=== PATIENT | female | born 1990 | race Caucasian/White ===

== ENCOUNTER 2016-07-04 14:23 | Emergency (ER) | payer MEDICAID ==
[~2016-07-04] VITALS: Ht 170.2 cm; Wt 99.8 kg
[2016-07-04 15:00] VITALS: BP_SYST 143
[2016-07-04 15:24] LABS: BASOPHILS # (AUTO) 0.1 K/uL (0.0-0.2); BASOPHILS % (AUTO) 0.5 % (0.0-2.0); EOSINOPHILS # (AUTO) 0.4 K/uL (0.0-0.4); EOSINOPHILS % (AUTO) 3.5 % (0.0-4.0); HEMATOCRIT 38.9 % (36-48); HEMOGLOBIN 13.4 g/dL (12.0-16.0); LYMPHOCYTES # (AUTO) 2.4 K/uL (1.0-5.5); LYMPHOCYTES % (AUTO) 23.7 % (20.5-51.5); MEAN CORPUSCULAR HEMOGLOBIN 29 pg (27-31); MEAN CORPUSCULAR HGB CONC 34 % (32-36); MEAN CORPUSCULAR VOLUME 85 fL (79.0-98.0); MONOCYTES # (AUTO) 0.7 K/uL (0.0-1.0); MONOCYTES % (AUTO) 7.1 % (1.7-9.3); NEUTROPHILS # (AUTO) 6.4 K/uL (1.8-7.7); NEUTROPHILS % (AUTO) 65.2 % (40.0-70.0); PLATELET COUNT (AUTO) 357 K/uL (130-430); RED CELL DISTRIBUTION WIDTH 12.6 % (9.0-15.0)
[2016-07-04 15:30] LABS: CALCIUM 8.5 mg/dL (8.4-11.0); CREATININE 0.81 mg/dL (0.55-1.30); POTASSIUM 3.2 mmol/L (3.5-5.1)
[2016-07-04 15:50] LABS: ALBUMIN 3.3 g/dL (3.4-4.8); TOTAL BILIRUBIN 0.2 mg/dL (0.0-1.0); TOTAL PROTEIN, SERUM 7.1 g/dL (6.4-8.3)
--- NOTE | 2016-07-04 17:16 | NUR ---
Patient to ER bed 3 to gown for evaluation. Side rails up. Report RECEIVED..
--- NOTE | 2016-07-04 17:20 | NUR ---
Dr Castano at bedside examining patient
--- NOTE | 2016-07-04 17:25 | NUR ---
Pt brouht by self, A&Ox4, pt c/o diarrhea x 8 days after taking antibiotics, skin pink and warm, cap refill <3, VS WNL, abd pain 2/10, pt denies pain or discomfort, VS WNL, denies urinary symptoms or bleeding.
[2016-07-04 18:27] VITALS: BP_SYST 142
--- NOTE | 2016-07-04 18:27 | NUR ---
Patient given written and verbal discharge instructions and verbalizes understanding. ER MD discussed with patient the results and treatment provided. Patient in stable condition. ID arm band removed. Rx Zofran and dicyclomine given. Patient educated on pain management and to follow up with PMD. Pain Scale 0/10 . Opportunity for questions provided and answered.
== END 2016-07-04 18:27 | disposition home or self-care (01) ==
LOC: SED 14:23
DX: R19.7 Diarrhea, unspecified (principal)
CPT/HCPCS: 36415; 80053; 83690-TC; 85025; 96361; 96374; 99284; 99285

== ENCOUNTER 2017-09-01 13:42 | Emergency (ER) | payer MEDICAID ==
[~2017-09-01] VITALS: Ht 170.2 cm; Wt 108.9 kg
[2017-09-01 13:42] VITALS: BP_SYST 142
[2017-09-01] MEDS ORDERED: PRO20 PO (13:58)
[2017-09-01] MEDS ORDERED: ACET500C38 PO (13:58)
[2017-09-01] MEDS ORDERED: LURA40TA PO (13:58)
[2017-09-01] MEDS ORDERED: ACET-2165 PO (13:58)
[2017-09-01] MEDS ORDERED: HYDR-2470 PO (13:58)
[2017-09-01 14:40] LABS: BASOPHILS # (AUTO) 0.1 K/uL (0.0-0.2); BASOPHILS % (AUTO) 0.7 % (0.0-2.0); EOSINOPHILS # (AUTO) 0.2 K/uL (0.0-0.4); EOSINOPHILS % (AUTO) 2.4 % (0.0-4.0); HEMATOCRIT 43.7 % (36-48); HEMOGLOBIN 14.9 g/dL (12.0-16.0); LYMPHOCYTES # (AUTO) 2.1 K/uL (1.0-5.5); LYMPHOCYTES % (AUTO) 22.7 % (20.5-51.5); MEAN CORPUSCULAR HEMOGLOBIN 29 pg (27-31); MEAN CORPUSCULAR HGB CONC 34 % (32-36); MEAN CORPUSCULAR VOLUME 86 fL (79.0-98.0); MONOCYTES # (AUTO) 0.6 K/uL (0.0-1.0); NEUTROPHILS # (AUTO) 6.4 K/uL (1.8-7.7); NEUTROPHILS % (AUTO) 68.2 % (40.0-70.0); PLATELET COUNT (AUTO) 397 K/uL (130-430); RED BLOOD CELL COUNT(AUTO) 5.07 MIL/uL (4.2-6.2); RED CELL DISTRIBUTION WIDTH 12.9 % (9.0-15.0); WHITE BLOOD COUNT (AUTO) 9.4 K/uL (4.8-10.8)
[2017-09-01 14:47] LABS: ALBUMIN 3.5 g/dL (3.4-4.8); CALCIUM 9.3 mg/dL (8.4-11.0); CREATININE 1.02 mg/dL (0.55-1.30); POTASSIUM 3.5 mmol/L (3.5-5.1); TOTAL BILIRUBIN 0.3 mg/dL (0.0-1.0)
[2017-09-01] MEDS ORDERED: KETOROLAC TROMETHAMINE 30 MG VIAL IVP ONE (15:00)
[2017-09-01 15:03] LABS: BILIRUBIN,URINE NEGATIVE (NEGATIVE); BLOOD, URINE NEGATIVE (NEGATIVE); CLARITY/URINE HAZY (CLEAR); COLOR,URINE YELLOW (YELLOW); GLUCOSE,URINE NEGATIVE (NEGATIVE); KETONES,URINE NEGATIVE (NEGATIVE); LEUKOCYTE ESTERASE ,URINE NEGATIVE (NEGATIVE); NITRITE, URINE NEGATIVE (NEGATIVE); PROTEIN URINE NEGATIVE (NEGATIVE); UROBILINOGEN,URINE 0.2 (0.2-1.0)
[2017-09-01 16:00] VITALS: BP_SYST 118
== END 2017-09-01 16:00 | disposition home or self-care (01) ==
LOC: SED 13:42
DX: R51 Headache (principal); F41.9 Anxiety disorder, unspecified; R03.0 Elevated blood-pressure reading, without diagnosis of hypertension; F15.10 Other stimulant abuse, uncomplicated; Z90.49 Acquired absence of other specified parts of digestive tract; Z79.899 Other long term (current) drug therapy
CPT/HCPCS: 36415; 70450; 80053; 81003; 81025; 85025; 96374; 99285; J1885

== ENCOUNTER 2018-01-23 15:07 | Emergency (ER) | payer MEDICAID ==
[~2018-01-23] VITALS: Ht 170.2 cm; Wt 104.3 kg
[~2018-01-23 15:07] MED LIST: ACET-2165 PO; ACET500C38 PO; HYDR-2470 PO; LURA40TA PO; PRO20 PO
[2018-01-23 15:10] VITALS: BP_SYST 124
--- NOTE | 2018-01-23 15:10 | NUR ---
BROUGHT BACK TO BED #3 AND TRIAGD. REPORT GIVEN TO KRIS
--- NOTE | 2018-01-23 15:12 | NUR ---
Pt brought by self accompanied by son, pt A&Ox4, c/o R lower abdominal pain and nausea, denies vomiting, LBM today, skin pink and warm, cap refill <3, denies vaginal bleeding.
--- NOTE | 2018-01-23 15:15 | NUR ---
Dr Zimmerman at bedside examining patient
[2018-01-23] MEDS ORDERED: KETOROLAC TROMETHAMINE 30 MG VIAL IVP ONE (15:30)
[2018-01-23 15:54] LABS: BASOPHILS # (AUTO) 0.1 K/uL (0.0-0.2); BASOPHILS % (AUTO) 1.2 % (0.0-2.0); EOSINOPHILS # (AUTO) 0.3 K/uL (0.0-0.4); EOSINOPHILS % (AUTO) 2.7 % (0.0-4.0); HEMATOCRIT 44.2 % (36-48); HEMOGLOBIN 14.4 g/dL (12.0-16.0); LYMPHOCYTES # (AUTO) 2.6 K/uL (1.0-5.5); MEAN CORPUSCULAR HEMOGLOBIN 29 pg (27-31); MEAN CORPUSCULAR HGB CONC 33 % (32-36); MEAN CORPUSCULAR VOLUME 89 fL (79.0-98.0); MONOCYTES # (AUTO) 0.5 K/uL (0.0-1.0); MONOCYTES % (AUTO) 5.5 % (1.7-9.3); NEUTROPHILS # (AUTO) 6.5 K/uL (1.8-7.7); NEUTROPHILS % (AUTO) 64.6 % (40.0-70.0); PLATELET COUNT (AUTO) 463 K/uL (130-430); RED BLOOD CELL COUNT(AUTO) 4.98 MIL/uL (4.2-6.2); RED CELL DISTRIBUTION WIDTH 12.6 % (9.0-15.0)
[2018-01-23 16:12] LABS: CALCIUM 9.1 mg/dL (8.4-11.0); CREATININE 1.07 mg/dL (0.55-1.30); POTASSIUM 3.3 mmol/L (3.5-5.1)
[2018-01-23 16:16] LABS: ALBUMIN 3.7 g/dL (3.4-4.8); TOTAL BILIRUBIN 0.2 mg/dL (0.0-1.0)
--- NOTE | 2018-01-23 16:54 | NUR ---
Patient ambulatory , no N/V/D noted, afebrile, skin pink and warm.
[2018-01-23 17:35] VITALS: BP_SYST 131
--- NOTE | 2018-01-23 17:37 | NUR ---
Patient given written and verbal discharge instructions and verbalizes understanding. ER MD discussed with patient the results and treatment provided. Patient in stable condition. ID arm band removed. IV catheter removed intact and dressing applied, no active bleeding. Rx of MOTRIN given. Patient educated on pain management and to follow up with PMD. Pain Scale 0/10. Opportunity for questions provided and answered. Medication side effect fact sheet provided.
== END 2018-01-23 17:37 | disposition home or self-care (01) ==
LOC: SED 15:07
DX: R10.31 Right lower quadrant pain (principal); F41.9 Anxiety disorder, unspecified; F32.9 Major depressive disorder, single episode, unspecified; Z90.49 Acquired absence of other specified parts of digestive tract; Z79.899 Other long term (current) drug therapy
CPT/HCPCS: 36415; 74176; 80053; 81025; 85025; 87040; 96374; 99285; J1885